=== PATIENT | female | born 1940 | race Caucasian/White ===

== ENCOUNTER 2019-01-22 10:21 | Emergency (ER) | payer MEDICARE ==
[~2019-01-22] VITALS: Ht 157.5 cm; Wt 72.6 kg
[2019-01-22] MEDS ORDERED: TDAP DIPH,PERTUSS,TET VAC/PF 0.5 ML DISP.SYRIN IM ONE ×2 (10:45→10:56)
--- NOTE | 2019-01-22 11:00 | NUR ---
PT IS ASKING IF THE TDAP SHOT HAS PRESERVATIVE, CALLED PHARMACY AND CONFIRMED THERE IS NO PRESERVATIVE.
--- NOTE | 2019-01-22 11:51 | NUR ---
Patient discharged to home in stable conditon. Written and verbal after care instructions given. Patient verbalizes understanding of instructions.PT WALKS IN STEADY GAIT. PT SAYS FEESL BETTER. PT SON AT THE DOOR TO TAKE THE PT HOME.PT DENEIS ANY DIZZINESS OR NAUSEA AT THIS POINT.
[2019-01-22 11:53] VITALS: BP 131/71
== END 2019-01-22 11:55 | disposition home or self-care (01) ==
LOC: ER 10:23
DX: S02.2XXA Fracture of nasal bones, initial encounter for closed fracture (principal); S00.83XA Contusion of other part of head, initial encounter; S80.212A Abrasion, left knee, initial encounter; E03.9 Hypothyroidism, unspecified; Z88.0 Allergy status to penicillin; Z88.8 Allergy status to other drugs, medicaments and biological substances; W01.0XXA Fall on same level from slipping, tripping and stumbling without subsequent striking against object, initial encounter; Y93.89 Activity, other specified; Y92.89 Other specified places as the place of occurrence of the external cause; Y99.8 Other external cause status
CPT/HCPCS: 70450; 70486; 90715; A4663